=== PATIENT | female | born 1975 | race Caucasian/White ===

== ENCOUNTER 2019-03-30 16:27 | Emergency (ER) | payer OTHER ==
--- NOTE | 2019-03-30 17:40 | CR ---
INDICATION: High blood pressure. TECHNIQUE: Two-views of the chest PA and lateral. COMPARISON: None. FINDINGS: The heart and mediastinum are normal. No consolidations or pleural effusions. Trachea is midline. No pneumothorax. IMPRESSION: No evidence of acute disease. Dictated by Cortes Nowak MD @ Mar 30 2019 5:38PM Signed by Dr. Cortes Nowak @ Mar 30 2019 5:39PM
[2019-03-30 17:43] LABS: BLOOD UREA NITROGEN,BUN 11 mg/dL (7.0-18.0); CARBON DIOXIDE,CO2 25.3 mmol/L (21.0-32.0); CHLORIDE,CL 105 mmol/L (98-107); GLUCOSE RANDOM 101 mg/dL (74-106); POTASSIUM,K 4.2 mmol/L (3.5-5.1); SODIUM,NA 138 mmol/L (136-145)
--- NOTE | 2019-03-30 18:26 | EDM.PDOC ---
ED HPI GENERAL MEDICAL PROBLEM - General Chief Complaint: General Stated Complaint: swelling right lymph node Time Seen by Provider: 03/30/19 18:26 - History of Present Illness INITIAL COMMENTS - FREE TEXT/NARRATIVE: HPI 43-year-old morbidly obese female with uncontrolled hypertension presents for evaluation of 2 weeks of right sided pectoral region pain that is worsened by movement of her right arm, pushing with her arm, and relieved by rest, patient believes that she has a small amount of soft tissue swelling in this area is concerned that she has a swollen lymph node following a URI type illness that preceded this discomfort. Patient denies chest pain, shortness breath, notes that the pain is not provoked by physical activity (aside from moving her right arm). No hypercoagulable history. ROS with no recent constitutional symptoms. Exam HR 90, RR 18, BP 229/116, T 35.8C, SaO2 99% room air. Gen: Pleasant, non-toxic appearing, resting comfortably HEENT: NC, AT, PEERL, EOMI. Resp: Clear to auscultation bilaterally. Unlabored respirations with a normal work of breathing. Card: Regular rate and rhythm. Extremities warm and well perfused. GI: Non-distended. : Deferred MSK/Skin: right chest wall, and right upper extremity visually normal, exam limited by habitus but no palpable soft tissue abnormalities with the exception of focal tenderness to palpation immediately lateral to the superior margin of her breasts. [id number] ultrasound without discernible abnormalities. Neuro: alert and oriented 3, no facial asymmetry, vision and hearing WNL. Heme/Lymph: Deferred Psych: Mood and affect appropriate. Labs / Imaging: EKG: SR 81 bpm, no ST segment elevations or depressions, no LBBB. CXR: no evidence of acute disease. WBC 8.98, HB 14.1, sodium 138, potassium 4.2, troponin < 0.050 MDM Previous chart, nursing note, and vitals reviewed. A: 43-year-old morbidly obese female with uncontrolled hypertension presents for evaluation of 2 weeks of right sided pectoral region pain that is worsened by movement of her right arm, pushing with her arm, and relieved by rest, patient believes that she has a small amount of soft tissue swelling in this area is concerned that she has a swollen lymph node following a URI type illness that preceded this discomfort. DDx & Evaluation: suspect muscle strain given point tenderness and provocation with movement of the pectoral muscle. No clear evidence of a cardiopulmonary or vascular etiology. No risk factors with respect upper extremity DVT, patient is PERC negative, chest x-ray without evidence of anemia, troponin negative, physical exam without evidence of abscess, lymphadenopathy, or further abnormalities. Additionally, icdpr-vy-laia ultrasound was unremarkable. Chest x- ray and no discernible abnormalities. Patient recommended to use ibuprofen and acetaminophen and follow up with primary care with regards your asymptomatic hypertension. Feature history is not consistent with unstable angina, however patient is aware of need for ongoing prompt care. Impression: chest wall pain. (please reference below for remainder of encounter information) PERC negative (age >= 50 - N, HR >= 100 - N, SaO2 < 95 - N, prior DVT - N, trauma or surgery in last 4 weeks - N, hemoptysis - N, exogenous estrogen - N, unilateral leg swelling - N]). right arm Pain Score (Numeric/FACES): 6 - Related Data Allergies Allergy/AdvReac Type Severity Reaction Status Date / Time No Known Allergies Allergy Verified 03/30/19 16:47 Home Meds: Home Meds . [No Known Home Meds] 03/30/19 [History] Past Medical History HEENT History: Reports: None Cardiovascular History: Reports: None Respiratory History: Reports: None Gastrointestinal History: Reports: None Genitourinary History: Reports: None DIRECTOR INSTRUMENTATION History: Reports: None Musculoskeletal History: Reports: None Neurological History: Reports: None Psychiatric History: Reports: None Endocrine/Metabolic History: Reports: Hypothyroidism Hematologic History: Reports: None Immunologic History: Reports: None Oncologic (Cancer) History: Reports: None Dermatologic History: Reports: None - Infectious Disease History Infectious Disease History: Reports: Chicken Pox - Past Surgical History Head Surgeries/Procedures: Reports: None HEENT Surgical History: Reports: None Cardiovascular Surgical History: Reports: None Respiratory Surgical History: Reports: None GI Surgical History: Reports: None Female Surgical History: Reports: None Endocrine Surgical History: Reports: None Neurological Surgical History: Reports: None Musculoskeletal Surgical History: Reports: None Oncologic Surgical History: Reports: None Dermatological Surgical History: Reports: None Social & Family History - Family History Family Medical History: Noncontributory - Tobacco Use Smoking Status *Q: Never Smoker Second Hand Smoke Exposure: No - Caffeine Use Caffeine Use: Reports: None - Recreational Drug Use Recreational Drug Use: No ED ROS GENERAL - Review of Systems Review Of Systems: See Below ED EXAM, GENERAL - Physical Exam Exam: See Below Course - Vital Signs Last Recorded V/S: Last Vital Signs Temp 35.8 C 03/30/19 16:41 Pulse 90 03/30/19 16:41 Resp 18 03/30/19 16:41 BP 153/97 H 03/30/19 18:15 Pulse Ox 99 03/30/19 16:41 - Orders/Labs/Meds Orders: Active Orders 24 hr Category Date Time Status EKG 12 Lead [EKG Documentation Completion] [RC] STAT Care 03/30/19 17:27 Active Labs: Laboratory Tests 03/30/19 03/30/19 03/30/19 Range/Units 17:11 17:11 17:11 WBC 8.98 (4.0-11.0) K/uL RBC 4.56 (4.30-5.90) M/uL Hgb 14.1 (12.0-16.0) g/dL Hct 42.6 (36.0-46.0) % MCV 93.4 (80.0-98.0) fL MCH 30.9 (27.0-32.0) pg MCHC 33.1 (31.0-37.0) g/dL RDW Std Deviation 45.9 (28.0-62.0) fl RDW Coeff of Hector 14 (11.0-15.0) % Plt Count 264 (150-400) K/uL MPV 12.70 H (7.40-12.00) fL Neut % (Auto) 58.8 (48.0-80.0) % Lymph % (Auto) 33.3 (16.0-40.0) % Carbon % (Auto) 5.7 (0.0-15.0) % Eos % (Auto) 2.1 (0.0-7.0) % Baso % (Auto) 0.1 (0.0-1.5) % Neut # (Auto) 5.3 (1.4-5.7) K/uL Lymph # (Auto) 3.0 H (0.6-2.4) K/uL Carbon # (Auto) 0.5 (0.0-0.8) K/uL Eos # (Auto) 0.2 (0.0-0.7) K/uL Baso # (Auto) 0.0 (0.0-0.1) K/uL Nucleated RBC % 0.0 /100WBC Nucleated RBCs # 0 K/uL Sodium 138 (136-145) mmol/L Potassium 4.2 (3.5-5.1) mmol/L Chloride 105 (98-107) mmol/L Carbon Dioxide 25.3 (21.0-32.0) mmol/L BUN 11 (7.0-18.0) mg/dL Creatinine 0.8 (0.6-1.0) mg/dL Est Cr Clr Drug Dosing 89.58 mL/min Estimated GFR (MDRD) > 60.0 ml/min Glucose 101 (74-106) mg/dL Calcium 8.8 (8.5-10.1) mg/dL Troponin I < 0.050 (0.000-0.056) ng/mL Departure - Departure Time of Disposition: 18:25 Disposition: Home, Self-Care 01 Clinical Impression: Chest pain - Discharge Information Referrals: PCP,None [Primary Care Provider] - Additional Instructions: You were in seen in the [facility] Emergency Department for evaluation of possible soft tissue swelling and tenderness on the right side of your chest. At the time of your evaluation your symptoms are tentatively believed to be due to a muscle strain. You may take ibuprofen and acetaminophen as directed on the bottle for treatment of discomfort. Please read and follow all of the instructions below. Please follow up with your primary care physician within 2 days for repeat evaluation further care as needed. When calling for follow-up care, please make the office aware that this follow-up is from your recent emergency room visit. If for any reason you are refused follow-up, please contact the [facility] Emergency Department at and asked to speak to the emergency department charge nurse. [ Your care today was limited to identifying and treating emergent medical problems only. Many people have subtle differences in their test results that require follow up with their outpatient physician(s) to correctly determine if this represents a normal variation or concerning abnormality with respect to your specific health. The care given to you today was limited to identifying and treating emergent medical problems - you need to request a copy of all of your medical records from today's visit and follow up with your outpatient physician(s) to review both today's visit and your overall health. If you have any new symptoms or if you are at all concerned about your health please return immediately to the emergency department. [rescriptions: If you are uninsured or have financial difficulties with filling your prescription(s), you may consider using a free pharmacy discount service such as [employer] (Fril[employer]) or [employer] ([employer]). These services allow you to search for a medication on your phone (or computer) and obtain a coupon that usually has a significant discount from the list barr at a pharmacy. Your physician as well as [facility] does not have a financial relationship with either of these services. You may also wish to speak with your physician to determine if lower cost prescriptions are possible. Obtaining primary care: 1. [facility] provides pediatrics (children), family medicine (children, adults, and some obstetrical care), and internal medicine (adults). Further specialty care is also available. Same day appointments are available. They may be contacted at [phone] and are open Friday through Friday 8 AM to 5 PM. The [facility] are located at [facility], [address], [place], [place] [address]. 2. [facility] offers family medicine, internal medicine, womens health, and further specialty care. [facility] may be contacted at [phone]. [facility] is located at [address] [place], [address]. 3. If you have health insurance, please also contact your insurer for a list of accepting providers under your policy, you may contact these providers for further health care. Occupational health: Work related injuries may consider following up with [facility], . Occupational health services are located at [address] [place] [address] and are open Friday through Friday from 7: 30 am to 5:00 pm. Obstetrical and Gynecological Care: [facility], , Friday through Friday 8 AM to 5 PM. [address] [address]. Eyecare: If you have an eye injury you should follow up with your third loader or with [facility], at [phone] or [phone] , they are located at [address] [place] [address]. Dental Care Ze Ramires DDS. [address] [place], [place]. Ph. [phone] Nir Ramires DDS MS. [address] [facility] [address], [place], [place]. Ph. [phone] Marcin Polanco DDS. 10 04/[address] [place] [address]. Ph. [phone] Erwin Horn DDS. [address] [facility] 4 [place], [place]. Ph. [phone] Romulo Landeros DDS PC. [address] [facility] [address] [place], [place]. Ph. Nel Kelsey DDS. [address] [place] [address]. Ph. [phone] [facility]. [address] [place], [place]. Ph. [phone] [facility]. [address] [place] [address], [place], [place]. Ph. [phone] [facility] [address] [place] [phone]. Ph. [facility]. [address] [place] [address] [address] [place], [place]. Ph. [phone] [facility]. [address] [place] [place]. Ph. [phone] Chest Pain of Unclear Cause You have been seen for chest pain. The cause of your pain is not yet known. [ou should follow up with your primary care physician in the next day to discuss having a cardiac stress test within 48 hours of today.] Your doctor has learned about your medical history, examined you, and checked any tests that were done. Still, it is unclear why you are having pain. The doctor thinks there is only a very small chance that your pain is caused by a life-threatening condition. Later, your primary care doctor might do more tests or check you again. Sometimes chest pain is caused by a dangerous condition, like a heart attack, aorta injury, blood clot in the lung, or collapsed lung. It is unlikely that your pain is caused by a life-threatening condition if: Your chest pain lasts only a few seconds at a time; you are not short of breath, nauseated (sick to your stomach), sweaty, or lightheaded; your pain gets worse when you twist or bend; your pain improves with exercise or hard work. Chest pain is serious. It is VERY IMPORTANT that you follow up with your regular doctor and seek medical attention immediately here or at the nearest Emergency Department if your symptoms become worse or they change. YOU SHOULD SEEK MEDICAL ATTENTION IMMEDIATELY, EITHER HERE OR AT THE NEAREST EMERGENCY DEPARTMENT, IF ANY OF THE FOLLOWING OCCURS: Your pain gets worse. Your pain makes you short of breath, nauseated, or sweaty. Your pain gets worse when you walk, go up stairs, or exert yourself. You feel weak, lightheaded, or faint. It hurts to breathe. Your leg swells. Your symptoms get worse or you have new symptoms or concerns. Ibuprofen (Brand Names: Motrin, Advil) Take 400 mg with a glass of water every 6 to 8 hours as needed for pain or fever. Do not take for more than 10 days. This medication may cause a mildly upset stomach, if so take it with a small snack. Stop taking it if you have persistent abdominal pain, heartburn, or any stomach pain. Do not take this medication if you have known ulcers. Do not take with Naproxen Sodium (brand name: Aleve) or other non-steroidal antiiflammatory medications that you may be prescribed (e.g. Diclofenac, Etodolac, Indomethicin) WARNING: This drug may infrequently cause serious (rarely fatal) bleeding from the stomach or intestines. Also, related drugs rarely have caused blood clots to form, resulting in heart attacks and strokes. This medication might also rarely cause similar problems. Talk to your doctor or pharmacist about the benefits and risks of treatment, as well as other possible medication choices. If you notice any of the following rare but very serious side effects, stop taking ibuprofen and seek immediate medical attention: black stools, persistent stomach/abdominal pain, vomit that looks like coffee grounds, chest pain, weakness on one side of the body, sudden vision changes, slurred speech. SIDE EFFECTS: Upset stomach, nausea, vomiting, heartburn, headache, diarrhea, constipation, drowsiness, and dizziness may occur. If any of these effects persist or worsen, notify your doctor or pharmacist promptly. If your doctor has directed you to use this medication, remember that he or she has judged that the benefit to you is greater than the risk of side effects. Many people using this medication do not have serious side effects. Tell your doctor immediately if any of these serious side effects occur: stomach pain, swelling of the hands or feet, sudden or unexplained weight gain, ringing in the ears ( tinnitus). Tell your doctor immediately if any of these unlikely but serious side effects occur: vision changes, rapid or pounding heartbeat, easy bruising or bleeding, difficult/painful swallowing. Tell your doctor immediately if any of these highly unlikely but very serious side effects occur: change in amount of urine, severe headache, very stiff neck, mental/mood changes, persistent sore throat or fever. This drug may rarely cause serious (possibly fatal) liver disease. If you notice any of the following highly unlikely but very serious side effects, stop taking ibuprofen and consult your doctor or pharmacist immediately: yellowing eyes and skin, dark urine, unusual/extreme tiredness. An allergic reaction to this drug is unlikely, but seek immediate medical attention if it occurs. Symptoms of an allergic reaction include: rash, itching/ swelling (especially of the face/tongue/throat), severe dizziness, trouble breathing. This is not a complete list of possible side effects. DRUG INTERACTIONS: Your healthcare professionals (e.g., doctor or pharmacist) may already be aware of any possible drug interactions and may be monitoring you for it. Do not start, stop or change the dosage of any medicine before checking with them first. This drug should not be used with the following medications because very serious interactions may occur: cidofovir, ketorolac. If you are currently using any of these medications listed above, tell your doctor or pharmacist before starting ibuprofen. Before using this medication, tell your doctor or pharmacist of all prescription and nonprescription/herbal products you may use, especially of: anti-platelet drugs (e.g., cilostazol, clopidogrel), oral bisphosphonates (e.g., alendronate), other medications for arthritis (e.g., aspirin, methotrexate), "blood thinners" (e.g., enoxaparin, heparin, warfarin), corticosteroids (e.g., prednisone), cyclosporine, desmopressin, high blood pressure drugs (including JOSHUA inhibitors such as captopril, angiotensin II receptor antagonists such as losartan, and beta- blockers such as metoprolol), lithium, pemetrexed, "water pills" (diuretics such as furosemide, hydrochlorothiazide, triamterene). Check all prescription and nonprescription medicine labels carefully for other pain/fever drugs ( NSAIDs such as aspirin, celecoxib, naproxen). These drugs are similar to ibuprofen, so taking one of these drugs while also taking ibuprofen may increase your risk of side effects. Consult your doctor or pharmacist for more details. However, if your doctor has prescribed low doses of aspirin to prevent heart attack or stroke (usually at dosages of 81-325 milligrams a day), you should continue to take the aspirin. Daily use of ibuprofen may decrease aspirin 's ability to prevent heart attack/stroke. Talk to your doctor about using a different medication (e.g., acetaminophen) to treat pain/fever. If you must take ibuprofen, talk to your doctor about possibly taking immediate-release aspirin (not enteric-coated) while also taking the ibuprofen dose apart from your aspirin dose. Do not increase your daily dose of aspirin or change the way you take aspirin/other medications without your doctor's approval. This document does not contain all possible interactions. Therefore, before using this product, tell your doctor or pharmacist of all the products you use. Keep a list of all your medications with you, and share the list with your doctor and pharmacist. Acetaminophen (Tylenol) Please take 1,000 mg every 6 hours as needed for pain. Do no use with alcohol or other acetaminophen containing medications. SIDE EFFECTS: This drug usually has no side effects. If you do not have liver problems, the maximum dose of acetaminophen for adults is 4 grams per day (4000 milligrams). Taking more than the maximum daily amount may cause serious ( possibly fatal) liver damage. Get medical help right away if you have any of the following symptoms of liver damage: persistent nausea/vomiting, extreme tiredness, stomach/abdominal pain, yellowing eyes/skin, dark urine. If you have liver problems, consult your doctor or pharmacist for a safe dosage of this medication. A very serious allergic reaction to this drug is rare. However, get medical help right away if you notice any symptoms of a serious allergic reaction, including: rash, itching/swelling (especially of the face/tongue/ throat), severe dizziness, trouble breathing. This is not a complete list of possible side effects. If you notice other effects not listed above, contact your doctor or pharmacist. High Blood Pressure (Hypertension) When you were in the emergency department you had an abnormally high blood pressure. High blood pressure can be without symptoms. However high blood pressure can lead to many medical problems including kidney disease, strokes, and heart attacks. Your blood pressure may have been elevated due to pain or the stress of being in the emergency department, however half of people with an elevated blood pressure in the emergency department have oysterman problems with high blood pressure. Please see your primary care physician in 2-3 days for a repeat check of your blood pressure. This may help prevent many health serious problems in the future. Please return to the emergency department if you develop any of the following: chest pain, shortness of breath, new or severe headache, changes in vision or hearing, weakness, or if you are otherwise concerned about your health. Sepsis Event Note - Evaluation Sepsis Screening Result: No Definite Risk - Focused Exam Vital Signs: Vital Signs Temp Pulse Resp BP Pulse Ox 03/30/19 18:15 153/97 H 03/30/19 17:50 173/101 H 03/30/19 16:41 35.8 C 90 18 229/116 H 99 Date Exam was Performed: 03/30/19 Time Exam was Performed: 18:25 - My Orders Last 24 Hours: My Active Orders 03/30/19 17:27 EKG 12 Lead [EKG Documentation Completion] [RC] STAT - Assessment/Plan Last 24 Hours: My Active Orders 03/30/19 17:27 EKG 12 Lead [EKG Documentation Completion] [RC] STAT
== END 2019-03-30 18:36 | disposition home or self-care (01) ==
LOC: MW.ED 16:27
DX: R07.89 Other chest pain (principal)
CPT/HCPCS: 36415; 71046; 71046-26; 80048; 84484; 85025; 93005; 99283; 99285-25